=== PATIENT | male | born 1980 | race Caucasian/White ===

== ENCOUNTER → 2020-11-06 16:03 | Outpatient (BNVA) | payer OTHER, SELFPAY | PROVIDERS: Visit Provider Internal Medicine | DX: J45.909 Unspecified asthma, uncomplicated (principal) | CPT/HCPCS: 99212 ==

== ENCOUNTER 2021-05-18 15:17 | Outpatient (REF) | payer OTHER, SELFPAY ==
[2021-05-19 01:24] LABS: CT PCR NOT DETECTED (Not Detect.); NG PCR NOT DETECTED (Not Detect.)
== END 2021-05-18 15:18 | disposition home or self-care (01) ==
LOC: HO.LNP 15:17
PROVIDERS: Visit Provider Physician Assistant
DX: Z11.8 Encounter for screening for other infectious and parasitic diseases (principal); Z11.3 Encounter for screening for infections with a predominantly sexual mode of transmission
CPT/HCPCS: 87491; 87591

== ENCOUNTER → 2022-09-01 14:54 | Outpatient (BNVA) | payer OTHER, SELFPAY | PROVIDERS: PCP Physician Assistant; Visit Provider Internal Medicine | DX: J45.20 Mild intermittent asthma, uncomplicated (principal) | CPT/HCPCS: 99212 ==

== ENCOUNTER 2024-03-15 11:07 | Outpatient (AMB) | payer OTHER, SELFPAY ==
--- NOTE | 2024-03-15 11:18 | MHC.OFFVIS ---
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 HE IS A CASE OF MILD INTERMITTENT BRONCHIAL ASTHMA, WHICH FLARES UP ONLY ONCE IN A WHILE AT THE CHANGE OF WEATHER. AND HE DRIVES TRUCK FOR DELIVERIES WHEN HE GOES IN AND OUT OF THE TRUCK HE CAN START HAVING SOME COUGH AND WHEEZING. HE USES VENTOLIN INHALER ABOUT ONCE OR TWICE A WEEK. HAS HAD NO RESPIRATORY INFECTION. HE IS NONSMOKER. [facility] Medical History Asthma Social History Housing: Apartment Alcohol intake: current Alcohol intake frequency: holidays/special occasions only Alcohol type: beer Patient Tobacco Use Status: Former Tobacco user Tobacco use type: Cigarette e-Cigarette/Vaping Use: Never Used service: No Current occupational status: employed Current occupation: Sales Cognitive needs: No Hearing needs: No Vision needs: Yes Review of Systems Const All systems reviewed & are unremarkable except as noted in HPI and below Physical Exam Vital Signs: Last Vital Signs Pulse 102 H 03/15/24 11:19 BP 102/70 03/15/24 11:19 Pulse Ox 95 03/15/24 11:19 Oxygen Delivery Method Room Air 03/15/24 11:19 BMI result Body Mass Index 29.8 Const General: healthy appearing, comfortable, no acute distress, alert and awake Orientation/consciousness: patient oriented x3 HEENT Head: Yes normal to inspection General nose exam: No nasal polyps present, No nasal discharge present and Other nasal findings present (MILD NASAL CONGESTION ) Face and sinus: Yes sinuses nontender Mouth: oropharynx normal Throat: Yes posterior oropharynx normal Eyes General: appearance normal, both eyes and all related structures Neck Neck: Yes normal visual inspection, Yes no lymphadenopathy, Yes trachea midline and Yes no JVD Thyroid: Thyroid normal Chest Chest palpation & inspection: normal inspection of the chest, normal palpation of entire chest wall and no tenderness Resp Effort & Inspection: normal respiratory effort Auscultation: clear to auscultation bilaterally, no rales and no wheezes Cardio Palpation: normal PMI Rate: regular rate Rhythm: regular rhythm Heart sounds: no gallops and no murmurs Peripheral pulses: Peripheral pulses 2+ throughout GI Palpation (GI): Soft to palpation, nontender, No hepatosplenomegaly present and no masses Auscultation: normal bowel sounds Back/Spine/Pelvis Thoracic/Lumbar Spine: thoracic and lumbar spine normal to inspection Skin General skin exam: no rashes or lesions noted Neuro General: patient oriented x3 and no focal motor deficits Cranial nerves: Yes CN's II-XII intact bilaterally Extrem General: Yes normal to inspection, Yes no clubbing, cyanosis or edema and Yes no calf tenderness Psych Appearance: grossly normal and well kempt Speech and movement: Normal speech and movement present Results Reviewed Results Reviewed: SPIROMETRY Assessment & Plan Assessment & Plan (1) Asthma: Comment: MILD TO MODERATE , INTERMITTENT , CONTROLLED . Code(s): J45.909 - Unspecified asthma, uncomplicated Category: Medical Qualifiers: Asthma severity: mild Asthma persistence: intermittent Asthma complication type: uncomplicated Qualified Code(s): J45.20 - Mild intermittent asthma, uncomplicated Plan: ADVISED TO CONT. USING VENTOLIN HFA 2 PUFFS Q 4-6 HRS ONLY PRN . IF HIS NEED TO USE THE VENTOLIN HFA, INCREASES MORE THAN 2 OR 3 TIMES PER WEEK, OR IF HE STARTS HAVING SYMPTOMS AT NIGHT NECESSITATING USE VENTOLIN, THEN HE MAY NEED TO BE STARTED ON INHALED STEROID PREPARATION WITH ARE WITHOUT LABA . RV ONCE A YEAR , OR HE CAN BE FOLLOWED BY HIS PCP Coding Level of Care Code Est Pt Level 3 (33465) Diagnoses Mild intermittent asthma without complication J45.20 Asthma severity: mild Asthma persistence: intermittent Asthma complication type: uncomplicated
[2024-03-15 11:19] VITALS: BP 102/70; PULSE 102; O2SAT 95; BMI 29.8
== END 2024-03-15 11:58 | disposition home or self-care (01) ==
PROVIDERS: PCP Physician Assistant; Visit Provider Internal Medicine
DX: J45.20 Mild intermittent asthma, uncomplicated (principal)
CPT/HCPCS: 99213

== ENCOUNTER → 2024-03-15 11:07 | Outpatient (BNVA) | payer OTHER, SELFPAY | PROVIDERS: PCP Physician Assistant; Visit Provider Internal Medicine | DX: J45.20 Mild intermittent asthma, uncomplicated (principal); Z79.899 Other long term (current) drug therapy | CPT/HCPCS: 99212 ==

== ENCOUNTER 2025-03-27 15:29 | Outpatient (AMB) | payer OTHER, SELFPAY ==
--- NOTE | 2025-03-27 15:43 | A.OFFVIS_ITS ---
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 During the summer months he does better and uses albuterol inhaler maybe once or twice in 2 weeks. During winter in the cold air he has tendency to have more episodes of. wheezing, and ends up using albuterol 2 or 3 times a week. His attacks or never long or sustained. He can do his usual day-to-day work without getting short of breath. He is nonsmoker and generally in good health. [facility] Medical History Asthma Social History Housing: Apartment Alcohol intake: current Alcohol intake frequency: holidays/special occasions only Alcohol type: beer Patient Tobacco Use Status: Former Tobacco user Tobacco use type: Cigarette e-Cigarette/Vaping Use: Never Used service: No Current occupational status: employed Current occupation: Sales Cognitive needs: No Hearing needs: No Vision needs: Yes Review of Systems Const All systems reviewed & are unremarkable except as noted in HPI and below Physical Exam Vital Signs: Last Vital Signs Pulse 104 H 03/27/25 15:44 BP 102/78 03/27/25 15:44 Pulse Ox 97 03/27/25 15:44 Oxygen Delivery Method Room Air 03/27/25 15:44 BMI result Body Mass Index 30.9 Const General: healthy appearing, comfortable, no acute distress, alert and awake Orientation/consciousness: patient oriented x3 HEENT Head: Yes normal to inspection General nose exam: No nasal polyps present, No nasal discharge present and Other nasal findings present (MILD NASAL CONGESTION ) Face and sinus: Yes sinuses nontender Mouth: oropharynx normal Throat: Yes posterior oropharynx normal Eyes General: appearance normal, both eyes and all related structures Neck Neck: Yes normal visual inspection, Yes no lymphadenopathy, Yes trachea midline and Yes no JVD Thyroid: Thyroid normal Chest Chest palpation & inspection: normal inspection of the chest, normal palpation of entire chest wall and no tenderness Resp Effort & Inspection: normal respiratory effort Auscultation: clear to auscultation bilaterally, no rales and no wheezes Cardio Palpation: normal PMI Rate: regular rate Rhythm: regular rhythm Heart sounds: no gallops and no murmurs Peripheral pulses: Peripheral pulses 2+ throughout GI Palpation (GI): Soft to palpation, nontender, No hepatosplenomegaly present and no masses Auscultation: normal bowel sounds Back/Spine/Pelvis Thoracic/Lumbar Spine: thoracic and lumbar spine normal to inspection Skin General skin exam: no rashes or lesions noted Neuro General: patient oriented x3 and no focal motor deficits Cranial nerves: Yes CN's II-XII intact bilaterally Extrem General: Yes normal to inspection, Yes no clubbing, cyanosis or edema and Yes no calf tenderness Psych Appearance: grossly normal and well kempt Speech and movement: Normal speech and movement present Assessment & Plan Assessment & Plan (1) Asthma: Comment: MILD TO MODERATE , INTERMITTENT , CONTROLLED . Code(s): J45.909 - Unspecified asthma, uncomplicated Category: Medical Qualifiers: Asthma severity: mild Asthma persistence: intermittent Asthma complication type: uncomplicated Qualified Code(s): J45.20 - Mild intermittent asthma, uncomplicated Plan: Continue to use Ventolin HFA 2 puffs Q 6 hours only p.r.n.. Revisit once a year and also prn if needed. Coding Level of Care Code Est Pt Level 3 (99036) Diagnoses Mild intermittent asthma without complication J45.20 Asthma severity: mild Asthma persistence: intermittent Asthma complication type: uncomplicated
[2025-03-27 15:44] VITALS: BP 102/78; PULSE 104; O2SAT 97; BMI 30.9
== END 2025-03-27 16:33 | disposition home or self-care (01) ==
LOC: HO.HPS 15:29
PROVIDERS: PCP Physician Assistant; Visit Provider Internal Medicine
DX: J45.20 Mild intermittent asthma, uncomplicated (principal)
CPT/HCPCS: 99213

== ENCOUNTER → 2025-03-27 15:29 | Outpatient (BNVA) | payer OTHER, SELFPAY | PROVIDERS: PCP Physician Assistant; Visit Provider Internal Medicine | DX: J45.20 Mild intermittent asthma, uncomplicated (principal); Z79.899 Other long term (current) drug therapy; Z87.891 Personal history of nicotine dependence | CPT/HCPCS: 99212 ==